=== PATIENT | male | born 1980 | race Caucasian/White ===

== ENCOUNTER 2022-07-03 10:44 | Emergency (ER) | payer BC ==
[2022-07-03] MEDS: Morphine 2 MG/ML SYRINGE IVPUSH ONE (11:06)
[2022-07-03] MEDS: Sodium Chloride 0.9% 10 ML Syringe FLUSH PRN (11:07)
[2022-07-03 11:43] LABS: ANION GAP 6.9 meq/L (7-15); CHLORIDE,CL 104 mmol/L (98-107); SODIUM,NA 137 mmol/L (136-145)
[2022-07-03 11:45] LABS: ESTIMATED GFR 81 mL/min (>=60)
[2022-07-03] MEDS: Ketorolac 30 MG/ML SDV IM ONE (12:39)
== END 2022-07-03 13:05 | disposition home or self-care (01) ==
LOC: LL.ED 10:44
DX: I77.89 Other specified disorders of arteries and arterioles (principal); Z88.0 Allergy status to penicillin; F17.210 Nicotine dependence, cigarettes, uncomplicated; W00.0XXA Fall on same level due to ice and snow, initial encounter; Y92.009 Unspecified place in unspecified non-institutional (private) residence as the place of occurrence of the external cause
CPT/HCPCS: 36415; 73030-LT; 73070-LT; 73090-LT; 80053; 80307; 85025; 96372; 96374; 99283-25; J1885; J2270; J3490

== ENCOUNTER 2022-08-16 21:08 | Emergency (ER) | payer BC ==
[2022-08-16] MEDS ORDERED: Ondansetron 4 MG/2 ML SDV IVPUSH PRN (21:28)
[2022-08-16 21:50] LABS: BASOPHILS ABSOLUTE AUTO 0.08 K/uL (0.00-0.20); BASOPHILS PERCENT AUTO 0.6 % (0.0-2.0); EOSINOPHILS ABSOLUTE AUTO 0.04 K/uL (0.00-0.50); EOSINOPHILS PERCENT AUTO 0.3 % (0.0-5.0); HEMATOCRIT 45.9 % (39.0-49.0); HEMOGLOBIN 16.2 g/dL (13.1-16.8); LYMPHOCYTES ABSOLUTE AUTO 1.25 K/uL (0.50-3.50); LYMPHOCYTES PERCENT AUTO 8.7 % (10.0-50.0); MEAN CORPUSCULAR HGB CONC 35.3 g/dL (31.7-36.0); MEAN CORPUSCULAR VOLUME 87.9 fL (84.0-98.0); MONOCYTES ABSOLUTE AUTO 0.94 K/uL (0.00-1.00); MONOCYTES PERCENT AUTO 6.5 % (2.0-14.0); NEUTROPHILS ABSOLUTE AUTO 12.05 K/uL (1.40-7.00); NEUTROPHILS PERCENT AUTO 83.9 % (45.0-80.0); PLATELET COUNT,PLT 328 K/uL (150-350); RED BLOOD CELL COUNT 5.22 M/uL (4.33-5.41); RED CELL DISTRIBUTION WIDTH 14.4 % (11.2-14.1); WHITE BLOOD CELL COUNT,WBC 14.4 K/uL (4.0-10.2)
[2022-08-16] MEDS: Sodium Chloride 0.9% 10 ML Syringe FLUSH PRN ×3 (21:50→23:45)
[2022-08-16] MEDS: HYDROmorphone 0.5 MG/0.5 ML Syringe IVPUSH PRN ×2 (21:51→23:39)
[2022-08-16] MEDS ORDERED: Sodium Chloride 0.9% 1,000 ML IV ONE (22:03)
[2022-08-16 22:04] LABS: ALANINE AMINOTRANSFERASE,ALT 25 U/L (12-78); ALBUMIN 3.9 g/dL (3.4-5.0); ALKALINE PHOSPHATASE 114 IU/L (46-116); ANION GAP 5.6 meq/L (7-15); ASPARTATE AMNIOTRANSFERASE,AST 17 U/L (15-37); BILIRUBIN TOTAL 0.9 mg/dL (0.2-1.0); BLOOD UREA NITROGEN,BUN 21 mg/dL (7-18); CALCIUM 9.4 mg/dL (8.5-10.1); CARBON DIOXIDE,CO2 31.4 mmol/L (21.0-32.0); CHLORIDE,CL 104 mmol/L (98-107); CREATININE 1.18 mg/dL (0.51-1.17); ESTIMATED GFR 79 mL/min (>=60); GLUCOSE RANDOM 106 mg/dL (70-99); POTASSIUM,K 4.3 mmol/L (3.5-5.1); PROTEIN TOTAL,TP 7.6 g/dL (6.4-8.2); SODIUM,NA 141 mmol/L (136-145)
[2022-08-16 22:53] LABS: BILIRUBIN,URINE NEGATIVE (NEGATIVE); COLOR,URINE YELLOW; GLUCOSE,URINE NEGATIVE (NEGATIVE); KETONES,URINE NEGATIVE (NEGATIVE); LEUKOCYTE ESTERASE,URINE NEGATIVE (NEGATIVE); NITRITE,URINE NEGATIVE (NEGATIVE); OCCULT BLOOD,URINE MODERATE (NEGATIVE); PROTEIN,URINE >=300 mg/dL (NEGATIVE); UROBILINOGEN,URINE 0.2 E.U./dL (0.2-1.0)
[2022-08-16 22:55] LABS: APPEARANCE,URINE CLOUDY
[2022-08-16 23:04] LABS: MUCUS,URINE FEW /LPF (NEGATIVE); RBC,URINE 20-30 /HPF; WBC,URINE 0-5 /HPF
[2022-08-16] MEDS ORDERED: Take Home: Acetaminophen/HYDROcodone 325-10 MG, 5 Tab Pack PO ONE (23:04)
[2022-08-16] MEDS ORDERED: Take Home: Ondansetron 4 MG Tab.DIS, 5 Tab Pack PO ONE (23:12)
== END 2022-08-17 01:10 | disposition home or self-care (01) ==
LOC: LL.ED 21:08
DX: K80.20 Calculus of gallbladder without cholecystitis without obstruction (principal); M94.0 Chondrocostal junction syndrome [Tietze]; Z88.0 Allergy status to penicillin
CPT/HCPCS: 36415; 74176; 80053; 81001; 85025; 96361; 96374; 96375; 99284; 99284-25; A9270-GY; J1170; J2405; J3490; J7030; Q0162